=== PATIENT | male | born 1955 | race Caucasian/White ===

== ENCOUNTER 2018-06-28 21:46 | Emergency (ER) | payer OTHER ==
[~2018-06-28] VITALS: Ht 177.8 cm; Wt 72.6 kg
[2018-06-28] MEDS ORDERED: AMLODIPINE BESY10 MG PO (22:02)
[2018-06-28] MEDS ORDERED: LOSARTAN POTASS25 MG PO (22:03)
[2018-06-28] MEDS ORDERED: ASPIR-LOW81 MG PO (22:03)
[2018-06-28] MEDS ORDERED: CEPHALEXIN500 MG PO (22:57)
== END 2018-06-28 23:09 | disposition home or self-care (01) ==
LOC: ED 21:46
DX: S01.511A Laceration without foreign body of lip, initial encounter (principal); W50.0XXA Accidental hit or strike by another person, initial encounter; I10 Essential (primary) hypertension; Z88.0 Allergy status to penicillin; Z79.899 Other long term (current) drug therapy; Z79.82 Long term (current) use of aspirin
CPT/HCPCS: 99282